=== PATIENT | female | born 1940 | race Two or more races ===

== ENCOUNTER 2017-12-10 12:41 | Inpatient (IN) | payer OTHER ==
[~2017-12-10] VITALS: Ht 157.5 cm; Wt 74.4 kg
[2017-12-10] MEDS ORDERED: ZOCOR20 MG PO (13:59)
[2017-12-10] MEDS ORDERED: DAFLONEX-XL TA1 EACH PO (13:59)
[2017-12-21] MEDS ORDERED: PERCOCET 5-3251 EACH PO (13:24)
[2017-12-21] MEDS ORDERED: OMEPRAZOLE20 MG PO (13:25)
[2017-12-21] MEDS ORDERED: INTESTINEX680 M1 PO (13:25)
== END 2017-12-21 14:50 | disposition home or self-care (01) | DRG 331 ==
LOC: SURG 12-18 05:45 → O/R 12-18 05:45 → SURG 12-18 10:00 → RECOVERY 12-18 14:15 → SURG 12-18 14:15
PROVIDERS: Surgery
PROC: 07TC4ZZ Resection of Pelvis Lymphatic, Percutaneous Endoscopic Approach (ICD-10-PCS; 2017-12-18)
PROC: 0DTF4ZZ Resection of Right Large Intestine, Percutaneous Endoscopic Approach (ICD-10-PCS; principal; 2017-12-18 10:00)
DX: C18.0 Malignant neoplasm of cecum (principal); R59.0 Localized enlarged lymph nodes; I10 Essential (primary) hypertension

== ENCOUNTER 2018-10-28 05:21 | Day surgery (SDC) | payer OTHER ==
[~2018-10-28 05:21] MED LIST: DAFLONEX-XL TA1 EACH PO; INTESTINEX680 M1 PO; OMEPRAZOLE20 MG PO; PERCOCET 5-3251 EACH PO; ZOCOR20 MG PO
== END 2018-10-28 09:35 | disposition home or self-care (01) ==
LOC: AMB-ENDOS 05:21
DX: D12.3 Benign neoplasm of transverse colon (principal)

== ENCOUNTER → 2019-11-10 06:00 | Outpatient (CLI) | payer OTHER | END | disposition home or self-care (01) | LOC: LAB 06:00 → ADM 12:00 → EDSTATUS 11-17 12:00 → AMB-ENDOS 11-17 12:00 | PROVIDERS: ATTEND Surgery | DX: U07.1 COVID-19 (principal); C18.0 Malignant neoplasm of cecum; R59.0 Localized enlarged lymph nodes; K92.1 Melena ==

== ENCOUNTER 2019-12-22 10:41 | Day surgery (SDC) | payer OTHER | END 2019-12-22 14:30 | disposition home or self-care (01) | LOC: AMB-ENDOS 10:41 | PROVIDERS: ATTEND Surgery | DX: K62.89 Other specified diseases of anus and rectum (principal); Z20.828 Contact with and (suspected) exposure to other viral communicable diseases ==